=== PATIENT | female | born 1995 | race Caucasian/White ===

== ENCOUNTER → 2020-08-11 | Outpatient (CLI) | payer OTHER ==
--- NOTE | 2020-08-11 09:02 | US ---
EXAMINATION TYPE: Transabdominal DATE OF EXAM: 08/11/2020 7:28 AM COMPARISON: NONE CLINICAL HISTORY: Z36 Confirm Dates. EXAM PERFORMED: EXAM MEASUREMENTS: GESTATIONAL AGE / DATING Physician Established: Not yet established Dates by LMP: (9 weeks/2 days) EDC: 03/14/20 Dates by First Scan: No previous this is first scan Dates by Current Scan for: (10 weeks/1 days) EDC: 03/08/21 MATERNAL ANATOMY Uterus: 13.0 x 5.9 x 7.7cm Right Ovary: 2.5 x 1.3 x 1.4cm Left Ovary: 2.2 x 1.5 x 1.9cm Post CDS / Adnexa: wnl Presence of free fluid: no GESTATION / SURVEY CRL: 3.3 (10 weeks/1 days) Yolk Sac (normal less than 6mm): 3mm Heart Rate: 170 bpm Rhythm: Normal IUP: Viable IUP Date of LMP: 06-07-20 Beta HcG (if available): Not available at this time IMPRESSION: Single viable intrauterine corresponding to an ultrasound age 10 weeks 1 day with estimated date of delivery 03/08/2021
== END | disposition home or self-care (01) ==
LOC: RADUSWWP 07:00
PROVIDERS: ATTEND Obstetrics & Gynecology
DX: Z36.89 Encounter for other specified antenatal screening (principal); Z3A.10 10 weeks gestation of pregnancy; Z88.2 Allergy status to sulfonamides
CPT/HCPCS: 76801

== ENCOUNTER → 2021-01-25 | Outpatient (CLI) | payer OTHER ==
--- NOTE | 2021-01-25 10:52 | US ---
EXAMINATION TYPE: US OB >= 14 wk fetus DATE OF EXAM: 01/25/2021 COMPARISON: None CLINICAL HISTORY: O36.63X0 Large for dates 3rd trimesterLarge for dates TECHNIQUE: Transabdominal (TA) GESTATIONAL AGE / DATING Physician Established: (33 weeks/1 days) EDC: 03/14/2021 Dates by LMP: (33 weeks/1 days) EDC: 03/14/2021 Dates by First Scan: (34 weeks/0 days) EDC: 03/08/2021 Dates by Current Scan: (33 weeks/5 days) EDC: 03/10/2021 Beta HCG (if available): Not available at this time SURVEY IUP: Single PLACENTA: Anterior PREVIA: No Previa JAILYN: 14.4 cm Normal CERVICAL LENGTH (transabdominal: norm > 3.0cm): 4.4 cm cm CERVICAL LENGTH (transvaginal: norm> 2.5cm): cm (Supplemental transvaginal imaging performed to verify cervical length.) BIOMETRY PRESENTATION: Vertex LIE: Longitudinal BPD: 8.71 cm 35 weeks / 1 days HC: 30.84 cm 34 weeks / 3 days AC: 28.11 cm 32 weeks / 1 days FL: 6.6 cm 34 weeks / 1 days ESTIMATED WEIGHT IN GRAMS: 2148 grams ESTIMATED WEIGHT IN LBS/OZ: 4 lbs. 12 oz. WEIGHT PERCENTAGE BASED ON ESTABLISHED DATES: 43.7% HC/AC: 1.10 cm Normal FL/AC: 23.57 cm Normal HEART RATE: 165 bpm RHYTHM: Normal IMPRESSION: Single viable intrauterine .
== END | disposition home or self-care (01) ==
LOC: RADUSWWP 10:18
PROVIDERS: ATTEND Obstetrics & Gynecology
DX: O36.63X0 Maternal care for excessive fetal growth, third trimester, not applicable or unspecified (principal); Z3A.33 33 weeks gestation of pregnancy
CPT/HCPCS: 76805

== ENCOUNTER 2021-03-07 13:42 | Inpatient (IN) | payer OTHER ==
[~2021-03-07 13:42] MED LIST: ROPIVACAINE 5MG/ML 20ML VIAL ONE; SODIUM CHLORIDE 0.9% 100 ML BAG ONE; fentaNYL (PF) 50 MCG/ML 5 ML AMP ONE
[2021-03-07 14:27] LABS: Appearance,Urine Clear (Clear); Bacteria,Urine Occasional /hpf; Bilirubin,Urine Negative (Negative); Blood,Urine Negative (Negative); Color,Urine Light Yellow; Glucose,Urine (UA) Negative (Negative); Ketones,Urine Negative (Negative); Leukocyte Esterase,Urine Small (Negative); Nitrite,Urine Negative (Negative); PH, Urine 6.5 (5.0-8.0); Protein,Urine Trace (Negative); Specific Gravity,Urine 1.006 (1.001-1.035); Squamous Epithelial Cell,Urine <1 /hpf (0-4); Urobilinogen,Urine <2.0 mg/dL (<2.0); WBC,Urine 2 /hpf (0-5)
[2021-03-07 14:35] LABS: Basophils % (A) 0 %; Eosinophils # (A) 0.1 k/uL (0-0.7); Eosinophils % (A) 1 %; HCT 33.6 % (34.0-46.0); HGB 11.7 gm/dL (11.4-16.0); Lymphocytes # (A) 1.5 k/uL (1.0-4.8); Lymphocytes % (A) 13 %; MCH 29.4 pg (25.0-35.0); MCHC 34.7 g/dL (31.0-37.0); MCV 84.8 fL (80.0-100.0); Monocytes # (A) 0.6 k/uL (0-1.0); Monocytes % (A) 5 %; Neutrophils # (A) 9.4 k/uL (1.3-7.7); Neutrophils % (A) 81 %; Platelet Count 276 k/uL (150-450); RBC 3.97 m/uL (3.80-5.40); RDW 12.7 % (11.5-15.5); WBC 11.7 k/uL (3.8-10.6)
[2021-03-07 14:36] LABS: Creatinine,Urine Random 48.8 mg/dL; Protein/Creatinine Ratio,Urine 0.635
[2021-03-07 14:43] LABS: ALT 14 U/L (4-34); AST 27 U/L (14-36); African American GFR (CKD) >90 (>60 ml/min/1.73 sqM); Blood Urea Nitrogen 9 mg/dL (7-17); LDH 454 U/L (313-618); Non-African American GFR(CKD) >90 (>60 ml/min/1.73 sqM); Uric Acid 7.5 mg/dL (3.7-7.4)
[2021-03-07] MEDS ORDERED: DINOPROSTONE 10 MG INSERT.ER VAGINAL ONE (15:30)
--- NOTE | 2021-03-07 16:24 | P.HPOB ---
History of Present Illness H&P Date: 03/07/21 Chief Complaint: Intrauterine at term: Preeclampsia Patient is a 25 at 39 weeks gestation who arrived to my office today and noted to have 2+ protein. Her blood pressure was normal. She had no headache, epigastric pain, or visual changes and no other signs or symptoms of preeclamptic. She was sent to labor and delivery for evaluation and labs due to 2+ protein and her protein creatinine ratio was noted to be elevated 0.6 and her uric acid was 7.5. Both of which are soft markers for preeclampsia but at term there is very little be gained with not treating this as preeclampsia so she is being admitted and induced for preeclampsia. It is noted that she did have some blood pressures with diastolic above 90 throughout the afternoon as well. All questions are answered for her and we had a minimum 15 minute discussion on risks of preeclamptic and what the goal and plan will be. Her was present for all discussions. Her course otherwise was unremarkable and she was feeling well prior to this. We had planned to do a Cervidil r ipening as her cervix last week was fingertip and thick. However today, she is dilated to 1/2 cm and she is 60-70% effaced and -3 station. We'll plan artificial rupture membranes with Pitocin augmentation of labor in the morning. She is staying in the hospital due to preeclampsia and will do serial blood pressures and if needed make adjustments to the delivery scheduled. All questions again are answered for she and her . No other signs or symptoms of severe features. Past Medical History Past Medical History: Asthma, GERD/Reflux History of Any Multi-Drug Resistant Organisms: None Reported Additional Past Surgical History / Comment(s): coposcopy, no general anesthesia Additional Past Anesthesia/Blood Transfusion Reaction / Comment(s): no hx of family issues with anesthesia Past Psychological History: No Psychological Hx Reported Smoking Status: Former smoker Past Alcohol Use History: None Reported Past Drug Use History: None Reported - Past Family History Father Family Medical History: Diabetes Mellitus, Hypertension Additional Family Medical History / Comment(s): depression, type 1 diabetic Medications and Allergies Home Medications Medication Instructions Recorded Confirmed Type Albuterol Inhaler [Ventolin Hfa 2 puff INHALATION DIRECTED PRN 03/07/21 03/07/21 History Inhaler] Pnv,Calcium 72/Iron/Folic Acid 1 tab PO DAILY 03/07/21 03/07/21 History [ Plus Tablet] Allergies Allergy/AdvReac Type Severity Reaction Status Date / Time Sulfa (Sulfonamide Allergy Rash/Hives Verified 03/07/21 14:03 Antibiotics) Exam Osteopathic Statement: *. No significant issues noted on an osteopathic structural exam other than those noted in the History and Physical/Consult. Vital Signs Temp Pulse Resp BP Pulse Ox 03/07/21 15:36 97.0 F L 79 18 134/87 99 Intake and Output 03/07/21 03/07/21 03/07/21 06:59 14:59 22:59 Other: Weight 78.653 kg 78.653 kg - OBG Physical Exam Breast: both: normal (no masses) Abdomen: bowel sounds normal, no diffuse tenderness, no bruit present, no guarding noted, no hepatomegaly, no splenomegaly, no mass Vulva: both: normal Vagina: normal moisture, no discharge Cervix: no lesion, no discharge Uterus: normal size, normal contour Adnexa: both: normal Anus/Rectum: normal perianal skin, no rectal mass, no hemorrhoids, heme negative Results Result Diagrams: 03/07/21 14:30 03/07/21 14:30 Abnormal Lab Results - Last 24 Hours (Table) 03/07/21 03/07/21 03/07/21 Range/Units 14:05 14:30 14:30 WBC 11.7 H (3.8-10.6) k/uL Hct 33.6 L (34.0-46.0) % Neutrophils # 9.4 H (1.3-7.7) k/uL Uric Acid 7.5 H (3.7-7.4) mg/dL Urine Protein Trace H (Negative) Ur Leukocyte Esterase Small H (Negative) Urine Bacteria Occasional H (None) /hpf
[2021-03-07] MEDS ORDERED: BUTORPHANOL 1 MG/ML 1 ML VIAL IV PRN (16:25)
[2021-03-07 20:03] LABS: INR 0.8 (<1.2); Partial Thromboplastin Time 21.7 sec (22.0-30.0); Prothrombin Time 9.3 sec (9.0-12.0)
[2021-03-08] MEDS ORDERED: OXYTOCIN 10 UNIT/ML 1 ML VIAL IM PRN (05:49)
[2021-03-08] MEDS ORDERED: CARBOPROST TROMETHAMINE 250 MCG/ML 1 ML AMP IM PRN (05:49)
[2021-03-08] MEDS ORDERED: METHYLERGONOVINE 0.2 MG/ML 1 ML AMP IM PRN (05:49)
[2021-03-08] MEDS ORDERED: TERBUTALINE 1 MG/ML VIAL SQ PRN (05:49)
[2021-03-08] MEDS ORDERED: LIDOCAINE 0.5% (PF) 5 MG/ML (50 ML SDV) SQ PRN (05:49)
[2021-03-08] MEDS ORDERED: OXYTOCIN 30 UNITS/500 ML NS 30 UNIT in SALINE 1 500ML.BAG IV SCH ×2 (06:00→18:00)
[2021-03-08] MEDS: LACTATED RINGERS 1,000 ML IV SCH ×3 (06:15→13:47)
[2021-03-08] MEDS ORDERED: ONDANSETRON 4 MG/2 ML VIAL IVP PRN (13:31)
[2021-03-08] MEDS ORDERED: LANOLIN CREAM 5 GM TUBE TOPICAL PRN (17:54)
[2021-03-08] MEDS ORDERED: ZOLPIDEM 5 MG TAB PO PRN (17:54)
[2021-03-08] MEDS ORDERED: diphenhydrAMINE 50 MG CAP PO PRN (17:54)
[2021-03-08] MEDS ORDERED: diphenhydrAMINE 50 MG/ML 1 ML VIAL IVP PRN ×2 (17:54)
[2021-03-08] MEDS ORDERED: ACETAMINOPHEN TAB 325 MG TAB PO PRN (17:54)
[2021-03-08] MEDS ORDERED: SIMETHICONE 80 MG CHEWABLE PO PRN (17:54)
[2021-03-08] MEDS ORDERED: HYDROCORTISONE 2.5% RECTAL CREAM 30 GM TUBE RECTAL PRN (17:54)
[2021-03-08] MEDS ORDERED: diphenhydrAMINE 25 MG CAP PO PRN (17:54)
[2021-03-08] MEDS ORDERED: BENZOCAINE/MENTHOL SPRAY 1 GM/SPRAY AEROSOL TOPICAL PRN (17:54)
--- NOTE | 2021-03-08 18:20 | P.PROBDLV ---
Vaginal Delivery Note - . Vaginal Delivery Note: Progressed complete and pushing with vacuum assisted vaginal delivery of a viable male scores were 9 and 9 at one and 5 minutes respectively and weight 6 lbs. 8 oz. As she was pushing the latter stages of the pushing the 80s heart tones were dropping into the 80s and were extended decelerations to approximately 60-90 seconds. After the second T-cell like this we discussed quickly emergent use of a vacuum to try and bring the baby down out as she was +2 station and on the first attempt there was one pop off after proxy worth of pressure with the millimeter mercury on the device The correct green level. We allowed her to push again without vacuum this did not produce any significant dissent and while she was nearly , the head was still not delivered. We did apply the vacuum a second time and was again pumped to the correct level on the device and with her pushing we were able to bring the baby's head to and disengaged the pump. It was removed from the field. And despite this the baby's head was still not delivered therefore a midline episiotomy was made with the heart tones still in the 70s to 80s with rapid delivery of the baby from this point once baby was delivered from left occiput anterior position interim posterior shoulders were easily delivered a nuchal cord 1 was noted and easily reduced. Baby was then suctioned of mouth nares and placed on mother's abdomen where the umbilical cord was clamped cut usual fashion. Nursery personnel was present and assumed care. Placenta was then delivered intact Pitocin was added to the IV. Midline and the abdomen was then repaired with 3-0 Vicryl following 1% Xylocaine for analgesia. There was a V- shaped laceration in addition to the episiotomy therefore the right side of the laceration was repaired initially with 3-0 Vicryl to clean the repair and a piece the left side into the episiotomy repair. scores were 9 and 9 at one and 5 minutes respectively weight was 6 lbs. 8 oz. and both mother and baby following repair were stable. I did do a rectal exam to verify no rectal involvement as the episiotomy extended to just above the rectum.
[2021-03-08] MEDS: IBUPROFEN 600 MG TAB PO SCH (18:37)
[2021-03-08] MEDS: SENNOSIDES-DOCUSATE SODIUM 1 EACH TAB PO SCH (23:30)
[2021-03-09] MEDS: IBUPROFEN 600 MG TAB PO SCH ×3 (02:43→16:33)
[2021-03-09] MEDS: SENNOSIDES-DOCUSATE SODIUM 1 EACH TAB PO SCH (07:32)
--- NOTE | 2021-03-09 07:55 | P.DS ---
Providers Date of admission: 03/07/21 15:31 Expected date of discharge: 03/09/21 Attending physician: Robert Tse Primary care physician: Stated None Hospital Course: Patient is doing very well post day 1. She is ambulating, voiding, and tolerating a diet. She voices no complaints and is requesting discharge to home today. Vital signs are stable and afebrile. Heart regular, lungs clear, extremities without pain. Abdomen soft, uterus is firm and lochia is reported light. Assessment day 1. Plan discharged home follow up with me in 6 weeks. Patient Condition at Discharge: Good Plan - Discharge Summary New Discharge Prescriptions: No Action Albuterol Inhaler [Ventolin Hfa Inhaler] 2 puff INHALATION DIRECTED PRN PRN Reason: Shortness Of Breath Or Wheezing Pnv,Calcium 72/Iron/Folic Acid [ Plus Tablet] 1 tab PO DAILY Discharge Medication List Albuterol Inhaler [Ventolin Hfa Inhaler] 2 puff INHALATION DIRECTED PRN 03/07/21 [History] Pnv,Calcium 72/Iron/Folic Acid [ Plus Tablet] 1 tab PO DAILY 03/07/21 [History] Follow up Appointment(s)/Referral(s): Robert Tse DO [Doctor of Osteopathic Medicine] - 04/21/21 11:00 am Activity/Diet/Wound Care/Special Instructions: Be lifting, limit stairs and driving, and pelvic rest. If any high temperatures, heavy bleeding, or severe pain call my office Discharge Disposition: HOME SELF-CARE
[2021-03-09 07:57] LABS: Basophils % (A) 0 %; Eosinophils % (A) 0 %; HCT 30.4 % (34.0-46.0); HGB 10.4 gm/dL (11.4-16.0); Lymphocytes # (A) 1.5 k/uL (1.0-4.8); Lymphocytes % (A) 9 %; MCH 29.4 pg (25.0-35.0); MCHC 34.1 g/dL (31.0-37.0); MCV 86.1 fL (80.0-100.0); Mean Platelet Volume 8.2; Monocytes % (A) 6 %; Neutrophils % (A) 84 %; Platelet Count 219 k/uL (150-450); RBC 3.52 m/uL (3.80-5.40); RDW 12.9 % (11.5-15.5); WBC 16.7 k/uL (3.8-10.6)
[2021-03-09 16:38] VITALS: BP 121/84; PULSE 79; RESP 16; TEMP 98.1
== END 2021-03-09 19:20 | disposition home or self-care (01) | DRG 807 ==
LOC: FBPOP 13:42 → 4FBP 15:31
PROVIDERS: ADMIT Obstetrics & Gynecology; ATTEND Obstetrics & Gynecology
PROC: 10E0XZZ Delivery of Products of Conception, External Approach (ICD-10-PCS; principal; 2021-03-08)
DX: O14.94 Unspecified pre-eclampsia, complicating childbirth (principal); Z37.0 Single live birth; O62.3 Precipitate labor; O69.81X0 Labor and delivery complicated by cord around neck, without compression, not applicable or unspecified; J45.909 Unspecified asthma, uncomplicated; O99.52 Diseases of the respiratory system complicating childbirth; Z3A.39 39 weeks gestation of pregnancy; Z82.49 Family history of ischemic heart disease and other diseases of the circulatory system; Z83.3 Family history of diabetes mellitus; Z87.891 Personal history of nicotine dependence
CPT/HCPCS: 59025; 81001; 82565; 82570; 83615; 84156; 84450; 84460; 84520; 84550; 85025; 85610; 85730; 86850; 86900; 86901; 99215